=== PATIENT | male | born 1960 | race Caucasian/White ===

== ENCOUNTER 2017-03-12 13:31 | Emergency (ER) | payer OTHER ==
[~2017-03-12] VITALS: Ht 172.7 cm; Wt 61.0 kg
[~2017-03-12 13:31] MED LIST: ASPI-986 PO; DILT90TA PO; no meds
[2017-03-12] MEDS ORDERED: LEVETIRACETAM 500MG PREMIX 100 ML IV ONE (13:45)
[2017-03-12 14:03] LABS: BASOPHILS % 0.8 % (0.0-2.0); EOSINOPHILS % 0.9 % (0.0-5.0); HEMATOCRIT. 36.9 % (42.0-52.0); HEMOGLOBIN. 12.2 g/dL (14.0-18.0); LYMPHOCYTES % 32.5 % (20.0-50.0); MEAN CORPUSCULAR HEMOGLOBIN 32.3 pg (28.0-32.0); MEAN CORPUSCULAR VOLUME 97.8 fL (80.0-94.0); MONOCYTES % 13.5 % (2.0-8.0); NEUTROPHILS % 52.3 % (40.0-76.0); RED BLOOD CELL COUNT 3.77 mill/uL (4.7-6.1); RED CELL DISTRIBUTION WIDTH 14.2 % (11.6-14.6)
[2017-03-12 14:16] LABS: PROTHROMBIN TIME 10.6 sec (9.4-11.6)
[2017-03-12 14:23] LABS: CARBON DIOXIDE 22 mEq/L (21-32); CHLORIDE 103 mEq/L (98-107)
[2017-03-12 14:25] LABS: MEAN PLATELET VOLUME 9.9 fl (7.4-10.4); PLATELET 128 x1000/uL (130-400); PLATELET ESTIMATE SLIGHTLY DECREASED
[2017-03-12 14:53] LABS: ETHANOL BLOOD 412 mg/dL
[2017-03-12] MEDS ORDERED: PHENYTOIN SODIUM 1,000 MG in SODIUM CHLORIDE 0.9% 100 ML IV ONE (15:00)
[2017-03-12] MEDS ORDERED: CHLORDIAZEPOXIDE 25MG CAPSULE PO ONE (17:45)
[2017-03-13 00:32] VITALS: BP 120/74
== END 2017-03-13 00:34 | disposition home or self-care (01) ==
LOC: ER 13:41
DX: G40.909 Epilepsy, unspecified, not intractable, without status epilepticus (principal); T51.0X1A Toxic effect of ethanol, accidental (unintentional), initial encounter; R41.82 Altered mental status, unspecified; F10.10 Alcohol abuse, uncomplicated; Y92.89 Other specified places as the place of occurrence of the external cause; Z79.82 Long term (current) use of aspirin
CPT/HCPCS: 36415; 70450; 80053; 80185; 85025; 85610; 96365; 96367; 99285; G0482; J1165; J1953; J7040; Z7610; J7050

== ENCOUNTER 2017-04-23 13:05 | Emergency (ER) | payer OTHER ==
[~2017-04-23] VITALS: Ht 167.6 cm; Wt 82.0 kg
[2017-04-23 13:08] VITALS: BP 121/77
== END 2017-04-23 20:20 | disposition left against medical advice (07) ==
LOC: ER 13:09
DX: Z53.21 Procedure and treatment not carried out due to patient leaving prior to being seen by health care provider (principal)

== ENCOUNTER 2018-01-06 22:53 | Inpatient (IN) | payer OTHER ==
[~2018-01-06] VITALS: Ht 170.2 cm; Wt 79.4 kg
[~2018-01-06 22:53] MED LIST changes: +ALBU18HF2 IH; -ASPI-986 PO; -DILT90TA PO; +PHEN100C12 PO; -no meds
[2018-01-07] MEDS ORDERED: ONDANSETRON HCL 4MG/2ML INJ IV STA (00:25)
[2018-01-07] MEDS ORDERED: LORAZEPAM 2MG/ML CPJ IV ONE (00:30)
[2018-01-07] MEDS ORDERED: FOLIC ACID 1 MG, THIAMINE HCL 100 MG, MVI, ADULT NO.1 10 ML in DEXTROSE 5% WATER 1,000 ML IV ONE ×4 (00:30)
[2018-01-07 01:22] LABS: EOSINOPHILS % 1.1 % (0.0-5.0); HEMATOCRIT. 43.7 % (42.0-52.0); HEMOGLOBIN. 14.6 g/dL (14.0-18.0); LYMPHOCYTES % 47.9 % (20.0-50.0); MEAN CORPUSCULAR HEMOGLOBIN 32.5 pg (28.0-32.0); MEAN CORPUSCULAR VOLUME 97.4 fL (80.0-94.0); MEAN PLATELET VOLUME 9.4 fl (7.4-10.4); MONOCYTES % 14.8 % (2.0-8.0); NEUTROPHILS % 35.2 % (40.0-76.0); PLATELET 187 x1000/uL (130-400); RED BLOOD CELL COUNT 4.49 mill/uL (4.7-6.1); RED CELL DISTRIBUTION WIDTH 15.4 % (11.6-14.6)
[2018-01-07 01:39] LABS: CHLORIDE 107 mEq/L (98-107)
[2018-01-07 01:48] LABS: CREATINE KINASE 130 IU/L (39-308)
[2018-01-07 02:02] LABS: ETHANOL BLOOD 361 mg/dL
[2018-01-07] MEDS ORDERED: SODIUM CHLORIDE 0.9% 1,000 ML IV SCH (02:39)
[2018-01-07 05:00] VITALS: BP 129/88
[2018-01-07 05:05] LABS: CLARITY URINE CLEAR (CLEAR); COLOR URINE YELLOW (YELLOW); KETONES URINE NEGATIVE (NEGATIVE); LEUKOCYTE ESTERASE URINE NEGATIVE (NEGATIVE); NITRITE URINE NEGATIVE (NEGATIVE); OCCULT BLOOD URINE 1+ (NEGATIVE); PROTEIN URINE NEGATIVE (NEGATIVE); SPECIFIC GRAVITY URINE 1.003 (1.005-1.030); UROBILINOGEN URINE 0.2 E.U./dL (0.2-1.0)
[2018-01-07 05:35] LABS: *AMPHETAMINES SCREEN URINE NEGATIVE (NEGATIVE); *BARBITURATES SCREEN URINE NEGATIVE (NEGATIVE); *BENZODIAZEPINES SCREEN URINE PRESUMTIVE POSITIVE (NEGATIVE); *COCAINE SCREEN URINE NEGATIVE (NEGATIVE)
[2018-01-07 05:36] LABS: CANNABINOID URINE SCREEN NEGATIVE (NEGATIVE); METHADONE URINE SCREEN NEGATIVE (NEGATIVE); OPIATES URINE SCREEN NEGATIVE (NEGATIVE); PHENCYCLIDINE URINE SCREEN NEGATIVE (NEGATIVE)
[2018-01-07 08:00] VITALS: BP 95/59
[2018-01-07] MEDS ORDERED: ACETAMINOPHEN 650MG/20.3ML UDC GT PRN (08:45)
[2018-01-07] MEDS ORDERED: ONDANSETRON HCL 4MG/2ML INJ IV PRN (08:45)
[2018-01-07] MEDS ORDERED: ACETAMINOPHEN 325MG TABLET PO PRN (08:45)
[2018-01-07] MEDS ORDERED: MAGNESIUM/ALUMINUM HYDROXIDE/SIMETHICONE 30ML UDC PO PRN (08:45)
[2018-01-07] MEDS ORDERED: HYDROCODONE/ACETAMINOPHEN 10/325MG TABLET PO PRN (08:45)
[2018-01-07] MEDS ORDERED: ACETAMINOPHEN 650MG SUPP PR PRN (08:45)
[2018-01-07] MEDS ORDERED: HYDROCODONE/ACETAMINOPHEN 5/325MG TABLET PO PRN (08:45)
[2018-01-07 12:00] VITALS: BP 115/66
[2018-01-07] MEDS ORDERED: PHENYTOIN SODIUM 1,000 MG in SODIUM CHLORIDE 0.9% 100 ML IV SCH (14:00)
[2018-01-07] MEDS: FOLIC ACID 1MG TABLET PO SCH (15:25)
[2018-01-07] MEDS: THIAMINE HCL 100MG TABLET PO SCH (15:25)
[2018-01-07] MEDS: MULTIVITAMINS,THER W-MINERALS TABLET PO SCH (15:25)
[2018-01-07 16:00] VITALS: BP 119/72
[2018-01-07] MEDS ORDERED: PNEUMOCOCCAL 23-VAL P-SAC VAC 0.5 ML IM ONE (16:30)
[2018-01-07 16:53] LABS: AMMONIA 59 uMol/L (<32)
[2018-01-07 16:54] LABS: CREATINE KINASE 100 IU/L (39-308)
[2018-01-07 16:55] LABS: CREATINE KINASE MB FRACTION < 1.0 ng/mL (0.5-3.6)
[2018-01-07 17:45] LABS: VITAMIN B12 SERUM 451 pg/mL (211-911)
[2018-01-07 17:51] LABS: FOLIC ACID (FOLATE) SERUM > 20.00 ng/mL (>5.38)
[2018-01-07 20:00] VITALS: BP 135/80
[2018-01-07] MEDS: LACTULOSE 20G/30ML UDC PO SCH (21:45)
[2018-01-08] VITALS: BP 17/98
[2018-01-08 00:34] LABS: CREATINE KINASE 85 IU/L (39-308)
[2018-01-08 00:36] LABS: CREATINE KINASE MB FRACTION < 1.0 ng/mL (0.5-3.6)
[2018-01-08 04:00] VITALS: BP 138/86
[2018-01-08] MEDS: LACTULOSE 20G/30ML UDC PO SCH ×2 (05:48→13:45)
[2018-01-08 07:19] LABS: HEMATOCRIT. 37.5 % (42.0-52.0); HEMOGLOBIN. 12.7 g/dL (14.0-18.0); MEAN CORPUSCULAR HEMOGLOBIN 32.8 pg (28.0-32.0); MEAN CORPUSCULAR VOLUME 96.8 fL (80.0-94.0); MEAN PLATELET VOLUME 9.4 fl (7.4-10.4); PLATELET 148 x1000/uL (130-400); RED BLOOD CELL COUNT 3.87 mill/uL (4.7-6.1); RED CELL DISTRIBUTION WIDTH 14.7 % (11.6-14.6)
[2018-01-08 07:54] LABS: CHLORIDE 103 mEq/L (98-107)
[2018-01-08 08:00] VITALS: BP 160/85
[2018-01-08 08:04] LABS: LDL CHOLESTEROL 72 mg/dL (5-100)
[2018-01-08 08:05] LABS: HDL CHOLESTEROL 58 mg/dL (40-59)
[2018-01-08 08:07] LABS: PHOSPHORUS 3.3 mg/dL (2.5-4.9)
[2018-01-08 08:13] LABS: T4 FREE 0.83 ng/dL (0.76-1.46)
[2018-01-08] MEDS: THIAMINE HCL 100MG TABLET PO SCH (08:57)
[2018-01-08] MEDS: FOLIC ACID 1MG TABLET PO SCH (08:57)
[2018-01-08] MEDS: MULTIVITAMINS,THER W-MINERALS TABLET PO SCH (08:57)
[2018-01-08 12:00] VITALS: BP 134/68
[2018-01-08 13:23] LABS: PLATELET ESTIMATE NORMAL
[2018-01-08] MEDS ORDERED: PHEN100C4 PO (16:15)
[2018-01-08] MEDS ORDERED: FOLI-43 PO (16:15)
[2018-01-08] MEDS ORDERED: THIA100T72 PO (16:15)
[2018-01-08] MEDS ORDERED: LACT10SO7 PO (16:15)
[2018-01-08 18:06] VITALS: BP 125/85
[2018-01-08] MEDS ORDERED: PHENYTOIN SODIUM EXTENDED 100MG CAPSULE PO SCH (21:00)
== END 2018-01-08 18:59 | disposition home or self-care (01) | DRG 53 ==
LOC: ER 22:53 → 7WST 01-07 02:40 → ENRESERV 01-07 03:14
PROVIDERS: ADMIT Internal Medicine; ATTEND Internal Medicine
DX: G40.909 Epilepsy, unspecified, not intractable, without status epilepticus (principal); G92 Toxic encephalopathy; F10.229 Alcohol dependence with intoxication, unspecified; E11.9 Type 2 diabetes mellitus without complications; E87.2 Acidosis; I10 Essential (primary) hypertension; Z79.84 Long term (current) use of oral hypoglycemic drugs
CPT/HCPCS: 36415; 70450; 70551; 71045; 80053; 80061; 80185; 80305; 81003; 82140; 82550; 82553; 82607; 82746; 82962; 83036; 83605; 83690; 83735; 83880; 84100; 84439; 84443; 84481; 84484; 85025; 85610; 90732; 93005; 96365; 96375; 97161; 99291; G0482; J1165; J2060; J2405; J3411; J3490; J7030; J7050; J7070; A4315

== ENCOUNTER 2018-07-26 10:26 | Emergency (ER) | payer OTHER ==
[~2018-07-26] VITALS: Ht 172.7 cm; Wt 72.0 kg
[~2018-07-26 10:26] MED LIST changes: -ALBU18HF2 IH; +FOLI-43 PO; +LACT10SO7 PO; -PHEN100C12 PO; +PHEN100C4 PO; +THIA100T72 PO
[2018-07-26] MEDS ORDERED: SODIUM CHLORIDE 0.9% 1,000 ML IV ONE (10:54)
[2018-07-26 11:23] LABS: BASOPHILS % 1.3 % (0.0-2.0); EOSINOPHILS % 0.9 % (0.0-5.0); HEMATOCRIT. 41.1 % (42.0-52.0); HEMOGLOBIN. 13.5 g/dL (14.0-18.0); LYMPHOCYTES % 42.5 % (20.0-50.0); MEAN CORPUSCULAR HEMOGLOBIN 30.4 pg (28.0-32.0); MEAN CORPUSCULAR VOLUME 92.7 fL (80.0-94.0); MEAN PLATELET VOLUME 8.8 fl (7.4-10.4); MONOCYTES % 14.2 % (2.0-8.0); NEUTROPHILS % 41.1 % (40.0-76.0); PLATELET 167 x1000/uL (130-400); RED BLOOD CELL COUNT 4.43 mill/uL (4.7-6.1); RED CELL DISTRIBUTION WIDTH 16.3 % (11.6-14.6)
[2018-07-26 11:28] LABS: CHLORIDE 113 mEq/L (98-107)
[2018-07-26 11:53] LABS: ETHANOL BLOOD 453 mg/dL
[2018-07-26 12:07] LABS: *AMPHETAMINES SCREEN URINE NEGATIVE (NEGATIVE); *BARBITURATES SCREEN URINE NEGATIVE (NEGATIVE); *BENZODIAZEPINES SCREEN URINE PRESUMTIVE POSITIVE (NEGATIVE); *COCAINE SCREEN URINE NEGATIVE (NEGATIVE)
[2018-07-26 12:09] LABS: CANNABINOID URINE SCREEN NEGATIVE (NEGATIVE); METHADONE URINE SCREEN NEGATIVE (NEGATIVE); OPIATES URINE SCREEN NEGATIVE (NEGATIVE); PHENCYCLIDINE URINE SCREEN NEGATIVE (NEGATIVE)
[2018-07-26 15:47] VITALS: BP 102/62
== END 2018-07-26 16:50 | disposition home or self-care (01) ==
LOC: ER 10:26
DX: F10.229 Alcohol dependence with intoxication, unspecified (principal); F13.120 Sedative, hypnotic or anxiolytic abuse with intoxication, uncomplicated; R74.0 Nonspecific elevation of levels of transaminase and lactic acid dehydrogenase [LDH]; E11.9 Type 2 diabetes mellitus without complications; R56.9 Unspecified convulsions; Z79.899 Other long term (current) drug therapy; Z82.49 Family history of ischemic heart disease and other diseases of the circulatory system; Y90.8 Blood alcohol level of 240 mg/100 ml or more
CPT/HCPCS: 36415; 70450; 80053; 80185; 80305; 80320; 85025; 96360; 99284; J7030; G0480

== ENCOUNTER 2019-03-25 15:11 | Emergency (ER) | payer OTHER ==
[~2019-03-25] VITALS: Ht 167.6 cm; Wt 85.0 kg
[~2019-03-25 15:11] MED LIST changes: +ALBU2.5V13 IH; +CHLO25CA10 PO; +DILT60TA35 PO; +LOPE2TAB26 PO; +LORA10TA7 PO; +MELO-106 PO; +PANT40TA4 PO; +PHEN50TA PO
[2019-03-25 16:03] LABS: HEMATOCRIT. 40.8 % (42.0-52.0); HEMOGLOBIN. 13.7 g/dL (14.0-18.0); MEAN CORPUSCULAR HEMOGLOBIN 32.4 pg (28.0-32.0); MEAN CORPUSCULAR VOLUME 96.5 fL (80.0-94.0); MEAN PLATELET VOLUME 8.4 fl (7.4-10.4); PLATELET 320 x1000/uL (130-400); RED BLOOD CELL COUNT 4.23 mill/uL (4.7-6.1); RED CELL DISTRIBUTION WIDTH 14.7 % (11.6-14.6)
[2019-03-25 16:08] LABS: CHLORIDE 109 mEq/L (98-107)
[2019-03-25 16:26] LABS: PLATELET ESTIMATE NORMAL
[2019-03-25 16:32] LABS: ETHANOL BLOOD 466 mg/dL
[2019-03-25] MEDS ORDERED: LORAZEPAM 1MG TABLET PO ONE (18:30)
[2019-03-25] MEDS ORDERED: FOLIC ACID 1 MG, THIAMINE HCL 100 MG, MVI, ADULT NO.1 10 ML in DEXTROSE 5% WATER 1,000 ML IV ONE ×4 (18:30)
[2019-03-25] MEDS ORDERED: MORPHINE SULFATE 4 MG/ML CPJ (NOT FOR IM USE) IV ONE (21:45)
[2019-03-25] MEDS ORDERED: ONDANSETRON HCL 4MG/2ML INJ IV ONE (21:45)
[2019-03-25 22:51] VITALS: BP 138/60
== END 2019-03-26 06:41 | disposition short-term general hospital (02) ==
LOC: ER 15:11
DX: F10.229 Alcohol dependence with intoxication, unspecified (principal); Y90.8 Blood alcohol level of 240 mg/100 ml or more; K85.20 Alcohol induced acute pancreatitis without necrosis or infection; T51.0X1A Toxic effect of ethanol, accidental (unintentional), initial encounter; Y92.89 Other specified places as the place of occurrence of the external cause; G40.909 Epilepsy, unspecified, not intractable, without status epilepticus
CPT/HCPCS: 36415; 76705; 80053; 80320; 83690; 85025; 96365; 96366; 96375; 99285; J2270; J2405; J3411; J3490; J7070; Z7610; G0480

== ENCOUNTER 2019-05-22 20:20 | Emergency (ER) | payer OTHER ==
[~2019-05-22] VITALS: Ht 177.8 cm; Wt 77.0 kg
[2019-05-22] MEDS ORDERED: SODIUM CHLORIDE 0.9% 500 ML IV ONE (22:45)
[2019-05-22] MEDS ORDERED: LEVETIRACETAM 1000MG/100ML 100 ML IV ONE (22:45)
[2019-05-22 23:06] LABS: CLARITY URINE CLEAR (CLEAR); COLOR URINE YELLOW (YELLOW); KETONES URINE NEGATIVE (NEGATIVE); LEUKOCYTE ESTERASE URINE NEGATIVE (NEGATIVE); NITRITE URINE NEGATIVE (NEGATIVE); OCCULT BLOOD URINE TRACE (NEGATIVE); PROTEIN URINE NEGATIVE (NEGATIVE); SPECIFIC GRAVITY URINE 1.002 (1.005-1.030); UROBILINOGEN URINE 0.2 E.U./dL (0.2-1.0)
[2019-05-22 23:08] LABS: HEMOGLOBIN. 14.7 g/dL (14.0-18.0); MEAN CORPUSCULAR HEMOGLOBIN 32.4 pg (28.0-32.0); MEAN CORPUSCULAR VOLUME 94.9 fL (80.0-94.0); MEAN PLATELET VOLUME 8.3 fl (7.4-10.4); PLATELET 229 x1000/uL (130-400); RED BLOOD CELL COUNT 4.52 mill/uL (4.7-6.1)
[2019-05-22 23:14] LABS: CHLORIDE 106 mEq/L (98-107)
[2019-05-22 23:17] LABS: *AMPHETAMINES SCREEN URINE NEGATIVE (NEGATIVE); *BARBITURATES SCREEN URINE NEGATIVE (NEGATIVE); *BENZODIAZEPINES SCREEN URINE NEGATIVE (NEGATIVE); *COCAINE SCREEN URINE NEGATIVE (NEGATIVE); METHADONE URINE SCREEN NEGATIVE (NEGATIVE)
[2019-05-22 23:18] LABS: CANNABINOID URINE SCREEN NEGATIVE (NEGATIVE); OPIATES URINE SCREEN NEGATIVE (NEGATIVE); PHENCYCLIDINE URINE SCREEN NEGATIVE (NEGATIVE)
[2019-05-22 23:26] LABS: PLATELET ESTIMATE NORMAL
[2019-05-22 23:27] LABS: ETHANOL BLOOD 325 mg/dL
[2019-05-23 07:47] VITALS: BP 110/78
== END 2019-05-23 07:48 | disposition home or self-care (01) ==
LOC: ER 20:20
DX: R56.9 Unspecified convulsions (principal); F10.229 Alcohol dependence with intoxication, unspecified; Y90.8 Blood alcohol level of 240 mg/100 ml or more; E11.9 Type 2 diabetes mellitus without complications; I10 Essential (primary) hypertension; Z98.890 Other specified postprocedural states; Z79.899 Other long term (current) drug therapy
CPT/HCPCS: 36415; 80053; 80305; 80320; 81003; 85025; 96365; 96366; 99285; J1953; J7040; G0480

== ENCOUNTER 2019-06-02 15:55 | Emergency (ER) | payer MEDICAID, OTHER ==
[~2019-06-02] VITALS: Ht 167.6 cm; Wt 84.0 kg
[2019-06-02 21:33] VITALS: BP 135/82
== END 2019-06-02 21:37 | disposition home or self-care (01) ==
LOC: ER 15:55
DX: F10.129 Alcohol abuse with intoxication, unspecified (principal); Y90.9 Presence of alcohol in blood, level not specified; R03.0 Elevated blood-pressure reading, without diagnosis of hypertension; E11.9 Type 2 diabetes mellitus without complications; G40.909 Epilepsy, unspecified, not intractable, without status epilepticus
CPT/HCPCS: 82962; 99284

== ENCOUNTER 2019-06-23 12:47 | Emergency (ER) | payer MEDICAID ==
[~2019-06-23] VITALS: Ht 175.3 cm; Wt 85.0 kg
[2019-06-23] MEDS ORDERED: SODIUM CHLORIDE 0.9% 1,000 ML IV ONE (13:31)
[2019-06-23] MEDS ORDERED: PHENYTOIN SODIUM 1,000 MG in SODIUM CHLORIDE 0.9% 100 ML IV ONE (13:45)
[2019-06-23 14:02] LABS: HEMATOCRIT. 41.4 % (42.0-52.0); HEMOGLOBIN. 13.8 g/dL (14.0-18.0); MEAN CORPUSCULAR HEMOGLOBIN 32.2 pg (28.0-32.0); MEAN CORPUSCULAR VOLUME 96.5 fL (80.0-94.0); MEAN PLATELET VOLUME 7.5 fl (7.4-10.4); PLATELET 351 x1000/uL (130-400); RED BLOOD CELL COUNT 4.29 mill/uL (4.7-6.1); RED CELL DISTRIBUTION WIDTH 15.2 % (11.6-14.6)
[2019-06-23 14:18] LABS: CHLORIDE 106 mEq/L (98-107)
[2019-06-23 14:58] LABS: ETHANOL BLOOD 349 mg/dL
[2019-06-23 15:24] LABS: PLATELET ESTIMATE NORMAL
[2019-06-23 19:33] LABS: CLARITY URINE CLEAR (CLEAR); COLOR URINE YELLOW (YELLOW); KETONES URINE NEGATIVE (NEGATIVE); LEUKOCYTE ESTERASE URINE NEGATIVE (NEGATIVE); NITRITE URINE NEGATIVE (NEGATIVE); OCCULT BLOOD URINE NEGATIVE (NEGATIVE); PROTEIN URINE NEGATIVE (NEGATIVE); SPECIFIC GRAVITY URINE 1.003 (1.005-1.030); UROBILINOGEN URINE 0.2 E.U./dL (0.2-1.0)
[2019-06-23 19:50] LABS: *AMPHETAMINES SCREEN URINE NEGATIVE (NEGATIVE); *BARBITURATES SCREEN URINE NEGATIVE (NEGATIVE); *BENZODIAZEPINES SCREEN URINE PRESUMTIVE POSITIVE (NEGATIVE); *COCAINE SCREEN URINE NEGATIVE (NEGATIVE)
[2019-06-23 19:51] LABS: CANNABINOID URINE SCREEN NEGATIVE (NEGATIVE); METHADONE URINE SCREEN NEGATIVE (NEGATIVE); OPIATES URINE SCREEN NEGATIVE (NEGATIVE); PHENCYCLIDINE URINE SCREEN NEGATIVE (NEGATIVE)
[2019-06-23 22:01] VITALS: BP 130/82
== END 2019-06-23 22:06 | disposition home or self-care (01) ==
LOC: ER 12:47
DX: G40.909 Epilepsy, unspecified, not intractable, without status epilepticus (principal); F10.229 Alcohol dependence with intoxication, unspecified; Y90.8 Blood alcohol level of 240 mg/100 ml or more
CPT/HCPCS: 36415; 80053; 80305; 80320; 81003; 83690; 85025; 96365; 96366; 99284; J1165; J7030; J7050; G0480

== ENCOUNTER 2019-07-23 16:04 | Emergency (ER) | payer MEDICAID, OTHER ==
[~2019-07-23] VITALS: Ht 172.7 cm; Wt 80.0 kg
[2019-07-23] MEDS ORDERED: SODIUM CHLORIDE 0.9% 1,000 ML IV ONE (18:08)
[2019-07-23] MEDS ORDERED: LORAZEPAM 2MG/ML CPJ IV ONE (18:15)
[2019-07-23] MEDS ORDERED: LEVETIRACETAM 500MG PREMIX 100 ML IV ONE (18:15)
[2019-07-23] MEDS ORDERED: FOLIC ACID 1 MG, THIAMINE HCL 100 MG, MVI, ADULT NO.1 10 ML in DEXTROSE 5% WATER 1,000 ML IV ONE ×4 (19:00)
[2019-07-23 19:37] LABS: HEMATOCRIT. 42.2 % (42.0-52.0); HEMOGLOBIN. 14.3 g/dL (14.0-18.0); MEAN CORPUSCULAR HEMOGLOBIN 32.2 pg (28.0-32.0); MEAN CORPUSCULAR VOLUME 94.9 fL (80.0-94.0); MEAN PLATELET VOLUME 7.7 fl (7.4-10.4); PLATELET 294 x1000/uL (130-400); RED BLOOD CELL COUNT 4.45 mill/uL (4.7-6.1); RED CELL DISTRIBUTION WIDTH 15.4 % (11.6-14.6)
[2019-07-23 19:45] LABS: CHLORIDE 108 mEq/L (98-107)
[2019-07-23 19:54] LABS: CREATINE KINASE 182 IU/L (39-308)
[2019-07-23 19:59] LABS: PLATELET ESTIMATE NORMAL
[2019-07-23 20:07] LABS: CARBAMAZEPINE < 0.5 ug/mL (4-12); ETHANOL BLOOD 353 mg/dL; PHENOBARBITAL < 2.1 ug/mL (15.0-40.0); VALPROIC ACID < 3.0 ug/mL (50-100)
[2019-07-23] MEDS ORDERED: THIAMINE HCL 100 MG/1 ML 2ML VIAL ONE (20:10)
[2019-07-23 20:32] LABS: *BARBITURATES SCREEN URINE NEGATIVE (NEGATIVE); *BENZODIAZEPINES SCREEN URINE NEGATIVE (NEGATIVE); *COCAINE SCREEN URINE NEGATIVE (NEGATIVE)
[2019-07-23 20:33] LABS: *AMPHETAMINES SCREEN URINE NEGATIVE (NEGATIVE); CANNABINOID URINE SCREEN NEGATIVE (NEGATIVE); METHADONE URINE SCREEN NEGATIVE (NEGATIVE); PHENCYCLIDINE URINE SCREEN NEGATIVE (NEGATIVE)
[2019-07-23 20:34] LABS: OPIATES URINE SCREEN NEGATIVE (NEGATIVE)
[2019-07-24 02:03] VITALS: BP 126/78
== END 2019-07-24 02:47 | disposition home or self-care (01) ==
LOC: ER 16:04
DX: T51.0X1A Toxic effect of ethanol, accidental (unintentional), initial encounter (principal); F10.229 Alcohol dependence with intoxication, unspecified; G92 Toxic encephalopathy; Y90.8 Blood alcohol level of 240 mg/100 ml or more; E86.0 Dehydration; G40.909 Epilepsy, unspecified, not intractable, without status epilepticus; Z91.14 Patient's other noncompliance with medication regimen; Y92.830 Public park as the place of occurrence of the external cause; Z95.0 Presence of cardiac pacemaker
CPT/HCPCS: 36415; 70450; 71045; 80053; 80156; 80165; 80184; 80185; 80305; 80320; 82550; 83690; 84443; 84484; 85025; 93005; 96365; 96366; 96368; 99285; J1953; J2060; J3411; J3490; J7030; J7070; G0480

== ENCOUNTER 2019-08-01 18:47 | Emergency (ER) | payer OTHER ==
[~2019-08-01] VITALS: Ht 172.7 cm; Wt 67.0 kg
[2019-08-01 20:31] LABS: HEMATOCRIT. 43.7 % (42.0-52.0); HEMOGLOBIN. 14.8 g/dL (14.0-18.0); MEAN CORPUSCULAR HEMOGLOBIN 31.9 pg (28.0-32.0); MEAN CORPUSCULAR VOLUME 94.2 fL (80.0-94.0); MEAN PLATELET VOLUME 8.5 fl (7.4-10.4); PLATELET 174 x1000/uL (130-400); RED BLOOD CELL COUNT 4.64 mill/uL (4.7-6.1); RED CELL DISTRIBUTION WIDTH 15.5 % (11.6-14.6)
[2019-08-01 20:55] LABS: PLATELET ESTIMATE NORMAL
[2019-08-01] MEDS ORDERED: ONDANSETRON HCL 4MG/2ML INJ IV ONE (21:15)
[2019-08-01 21:47] LABS: CHLORIDE 101 mEq/L (98-107)
[2019-08-01 22:02] LABS: ETHANOL BLOOD 406 mg/dL
[2019-08-02] MEDS ORDERED: PHENYTOIN SODIUM 1,000 MG in SODIUM CHLORIDE 0.9% 100 ML IV SCH (01:00)
[2019-08-02] MEDS ORDERED: ONDANSETRON 4MG ODT PO ONE (07:45)
[2019-08-02 10:53] VITALS: BP 136/78
== END 2019-08-02 10:50 | disposition home or self-care (01) ==
LOC: ER 18:47
DX: R56.9 Unspecified convulsions (principal); F10.229 Alcohol dependence with intoxication, unspecified; Y90.8 Blood alcohol level of 240 mg/100 ml or more; E11.9 Type 2 diabetes mellitus without complications; I10 Essential (primary) hypertension; Z95.0 Presence of cardiac pacemaker; F17.290 Nicotine dependence, other tobacco product, uncomplicated; Z79.899 Other long term (current) drug therapy
CPT/HCPCS: 36415; 80053; 80185; 80320; 85025; 96365; 96366; 96375; 99285; J1165; J2405; J7050; Q0162; G0480